=== PATIENT | female | born 1970 | race Caucasian/White ===

== ENCOUNTER 2017-06-15 02:37 | Emergency (ER) | payer BC, OTHER ==
[2017-06-15] MEDS ORDERED: Ketorolac 60 MG/2 ML SDV IM ONE (02:50)
--- NOTE | 2017-06-15 03:29 | EDM.PDOC ---
ED HPI GENERAL MEDICAL PROBLEM - General Chief Complaint: General Stated Complaint: TROUBLE BREATHING Time Seen by Provider: 06/15/17 03:20 Source of Information: Reports: Patient History Limitations: Reports: No Limitations - History of Present Illness INITIAL COMMENTS - FREE TEXT/NARRATIVE: 47 yo female with chronic lung dz presents with SOB and PARKER. Had used her albuterol just before arrival and is no longer complaining of any respiratory issues. Has had headaches like this in the past when she's had trouble breathing. 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 Treatments, Other (see below) Other Treatments WINK CUTTER OPERATOR: SVN Headache Pain Score (Numeric/FACES): 5 - Related Data Allergies Allergy/AdvReac Type Severity Reaction Status Date / Time No Known Allergies Allergy Verified 06/15/17 02:50 Home Meds: Home Meds Fluticasone Propionate [Flonase] 1 puff NS Q3D 07/16/14 [History] Montelukast Sodium [Singulair] 10 mg PO BEDTIME 07/16/14 [History] Albuterol Sulfate 2.5 mg IH QID PRN 06/15/17 [History] Albuterol Sulfate [Proair Hfa] 2 puff QID 06/15/17 [History] Beclomethasone Dipropionate [Qvar] 2 puff BID 06/15/17 [History] Pantoprazole 20 mg PO ACBREAKFAST 06/15/17 [History] Tiotropium Br/Olodaterol HCl [Stiolto Respimat Inhal [place]] 2 puff DAILY [History] Past Medical History Respiratory History: Reports: COPD Gastrointestinal History: Reports: Cholelithiasis, GERD 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: Musculoskeletal History: Reports: Back Pain, Chronic Endocrine/Metabolic History: Reports: Obesity/BMI 30+ Dermatologic History: Reports: Eczema - Infectious Disease History Infectious Disease History: Reports: Chicken Pox - Past Surgical History GI Surgical History: Reports: Cholecystectomy Social & Family History - Family History Family Medical History: Noncontributory - Tobacco Use Smoking Status *Q: Current Status Unknown - Alcohol Use Days Per Week of Alcohol Use: 0 - Living Situation & Occupation Living situation: Reports: ED ROS GENERAL - Review of Systems Review Of Systems: See Below Constitutional: Reports: No Symptoms HEENT: Reports: No Symptoms Respiratory: Reports: Shortness of Breath, Wheezing, Cough Cardiovascular: Reports: No Symptoms Endocrine: Reports: No Symptoms GI/Abdominal: Reports: No Symptoms : Reports: No Symptoms Musculoskeletal: Reports: No Symptoms Skin: Reports: No Symptoms Neurological: Reports: Headache Psychiatric: Reports: No Symptoms ED EXAM, GENERAL - Physical Exam Exam: See Below Exam Limited By: No Limitations General Appearance: Alert, WD/WN, No Apparent Distress Eye Exam: Bilateral Eye: EOMI, Normal Inspection, PERRL Ears: Normal External Exam, Normal Canal, Hearing Grossly Normal Ear Exam: Bilateral Ear: Auricle Normal, Canal Normal Nose: Normal Inspection, Normal Mucosa, No Blood Throat/Mouth: Normal Inspection, Normal Lips, Normal Oropharynx, Normal Voice, No Airway Compromise, Other (edentulous) Head: Atraumatic, Normocephalic Neck: Normal Inspection, Supple Respiratory/Chest: No Respiratory Distress, Lungs Clear, No Accessory Muscle Use , Decreased Breath Sounds (mildly decreased) Cardiovascular: Regular Rate, Rhythm, No Edema Back Exam: Normal Inspection Extremities: Normal Inspection, Normal Range of Motion, Non-Tender, No Pedal Edema Neurological: Alert, Oriented, CN II-XII Intact, Normal Cognition, No Motor/ Sensory Deficits Psychiatric: Normal Affect, Normal Mood Skin Exam: Warm, Dry, Intact, Normal Color, No Rash Lymphatic: No Adenopathy Course - Vital Signs Text/Narrative:: PARKER gone after Tordadol Last Recorded V/S: Last Vital Signs Temp 36.3 C 06/15/17 02:38 Pulse 89 06/15/17 02:38 Resp 20 06/15/17 02:38 BP 135/71 06/15/17 02:38 Pulse Ox 96 06/15/17 02:38 - Orders/Labs/Meds Meds: Medications Discontinued Medications Generic Name Dose Route Start Last Admin Trade Name Freq PRN Reason Stop Dose Admin Ketorolac Tromethamine 60 mg 06/15/17 02:50 06/15/17 03:02 Toradol IM 06/15/17 02:51 60 mg ONETIME ONE Administration Departure - Departure Time of Disposition: 03:36 Disposition: Home, Self-Care 01 Condition: Good Clinical Impression: Bronchospasm Headache Qualifiers: Headache type: tension-type Headache chronicity pattern: acute headache Intractability: not intractable Qualified Code(s): G44.209 - Tension-type headache, unspecified, not intractable - Discharge Information Referrals: Nancy Ward NP [Primary Care Provider] - Forms: ED Department Discharge Care Plan Goals: Continue your usual medications. Recheck as needed.
[2017-06-15 03:41] VITALS: BP 134/80
== END 2017-06-15 03:35 | disposition home or self-care (01) ==
LOC: FB.ED 02:37
DX: G44.209 Tension-type headache, unspecified, not intractable (principal); J98.01 Acute bronchospasm; J44.9 Chronic obstructive pulmonary disease, unspecified; K21.9 Gastro-esophageal reflux disease without esophagitis; E66.9 Obesity, unspecified; Z90.49 Acquired absence of other specified parts of digestive tract; Z79.899 Other long term (current) drug therapy
CPT/HCPCS: 96372; 99284; J1885